=== PATIENT | female | born 1980 | race Caucasian/White ===

== ENCOUNTER 2017-09-20 07:02 | Outpatient (CLI) | payer BC | END 2017-09-20 07:03 | disposition home or self-care (01) | LOC: BICULT 07:02 | PROVIDERS: ATTEND Family Medicine | DX: O09.522 Supervision of elderly multigravida, second trimester (principal); Z3A.19 19 weeks gestation of pregnancy | CPT/HCPCS: 76805 ==

== ENCOUNTER 2018-02-11 21:00 | Inpatient (IN) | payer BC ==
[2018-02-11] MEDS ORDERED: HYDROcodone/Acetaminophen 5/325 mg Tablet PO PRN (21:46)
[2018-02-11] MEDS ORDERED: Promethazine HCl 25 MG/ML VIAL IM PRN (21:46)
[2018-02-11] MEDS ORDERED: Lidocaine 1% (PF) 30 ML VIAL SC PRN (21:46)
[2018-02-11] MEDS ORDERED: Diphenoxylate HCl/Atropine Tablet PO PRN (21:46)
[2018-02-11] MEDS ORDERED: Methylergonovine 0.2 MG/ML VIAL IM PRN (21:46)
[2018-02-11] MEDS ORDERED: Ibuprofen 800 MG TAB PO PRN (21:46)
[2018-02-11] MEDS ORDERED: Misoprostol 200 MCG TAB PR PRN (21:46)
[2018-02-11] MEDS ORDERED: Ondansetron HCl/PF 4 MG/2 ML Vial IVP PRN (21:46)
[2018-02-11] MEDS ORDERED: Carboprost 250 MCG/ML AMP IM PRN (21:46)
[2018-02-11] MEDS ORDERED: NS w/ Oxytocin 10 units 500 ML IV SCH (22:30)
[2018-02-11] MEDS ORDERED: Penicillin G Potassium 5 MILL.UNITS in Sodium Chloride 0.9% 100 ML IVPB SCH (22:30)
[2018-02-11 22:32] VITALS: BMI 35.8
[2018-02-11 22:59] LABS: Hemoglobin 12.9 g/dL (12.0-16.0); Mean Corpuscular HGB CONC 34.4 g/dL (32.0-36.0); Mean Corpuscular Volume 84.3 fl (81.0-99.0); Mean Platelet Volume 9.1 fL (7.4-10.4); Platelet Count 223 thou/uL (130-400); RBC Distribution Width 12.2 % (11.5-14.5); Red Blood Cell (RBC) Count 4.45 mill/uL (4.20-5.40); White Blood Cell (WBC) Count 13.3 thou/uL (4.8-10.8)
[2018-02-11] MEDS: Lactated Ringer's 1,000 ML IV SCH (22:59)
[2018-02-11] MEDS: Misoprostol 100 MCG TAB VAG SCH (23:30)
[2018-02-11 23:38] LABS: HBSAg Index 0.15 S/CO (0-0.99); Hep B Surf Ag Non-Reactive S/CO (NonReactive); Syphilis Antibody Nonreactive (Nonreactive); Syphilis Antibody Index 0.03 S/CO (<1.00 Non-Reactive)
[2018-02-12] MEDS: Misoprostol 100 MCG TAB VAG SCH ×3 (02:30→22:58)
[2018-02-12] MEDS: Lactated Ringer's 1,000 ML IV SCH ×4 (02:36→19:34)
[2018-02-12] MEDS: Penicillin G 2.5 MILL.units 2.5 MILL.UNITS in Premix Bag 1 BAG IVPB SCH ×5 (03:33→22:59)
[2018-02-12] MEDS ORDERED: DISCONTINUE ALL PREVIOUS NARCOTICS FS SCH (12:00)
[2018-02-12] MEDS ORDERED: Bupivacaine 0.5% 20 ML, fentaNYL Citrate/PF 400 MCG in Sodium Chloride 0.9% 72 ML EPIDURAL SCH (12:00)
[2018-02-12] MEDS ORDERED: Fentanyl 100 MCG/2 ML VIAL ONE (12:04)
[2018-02-12] MEDS ORDERED: Bupivacaine 0.5% 10 ML VIAL ONE (12:04)
[2018-02-12] MEDS ORDERED: Bupivacaine 0.25% 10 ML VIAL EPIDURAL ONE (12:29)
[2018-02-12] MEDS ORDERED: Fentanyl 100 MCG/2 ML VIAL I-THECAL ONE (12:29)
[2018-02-12] MEDS: NS w/ Oxytocin 10 units 500 ML IV SCH (13:06)
[2018-02-12] MEDS: NS / Oxytocin 40 units/1000ml 1,000 ML IV PRN ×2 (16:50→17:56)
[2018-02-12] MEDS ORDERED: Misoprostol 200 MCG TAB ONE (16:56)
[2018-02-12] MEDS: Tranexamic Acid 1,000 MG in Sodium Chloride 0.9% 100 ML IVPB SCH ×2 (17:10→19:34)
[2018-02-12] MEDS ORDERED: Carboprost 250 MCG/ML AMP ONE (17:13)
[2018-02-12] MEDS ORDERED: HYDROcodone/Acetaminophen 5/325 mg Tablet PO PRN (23:36)
[2018-02-12] MEDS ORDERED: diphenhydrAMINE 25 MG CAP PO PRN (23:36)
[2018-02-12] MEDS ORDERED: NS / Oxytocin 40 units/1000ml 1,000 ML IV SCH (23:36)
[2018-02-12] MEDS ORDERED: Bisacodyl 10 MG SUPP PR PRN (23:36)
[2018-02-12] MEDS ORDERED: Ondansetron HCl/PF 4 MG/2 ML Vial IVP PRN (23:36)
[2018-02-12] MEDS ORDERED: Milk Of Magnesia 30 ML UDCUP PO PRN (23:36)
[2018-02-12] MEDS ORDERED: Diphenoxylate HCl/Atropine Tablet PO PRN (23:36)
[2018-02-12] MEDS ORDERED: Lanolin Ointment 7 GM TUBE TOP PRN (23:36)
[2018-02-12] MEDS ORDERED: Benzocaine/Menthol 20-0.5% 60 ML CAN TOP PRN (23:36)
[2018-02-12] MEDS ORDERED: Docusate Calcium (SURFAK) 240 MG CAP PO SCH (23:45)
[2018-02-13] MEDS: Ibuprofen 800 MG TAB PO SCH ×3 (01:33→16:50)
[2018-02-13] MEDS: Misoprostol 200 MCG TAB PO SCH ×2 (01:34→07:26)
[2018-02-13 05:43] LABS: Mean Corpuscular HGB CONC 33.4 g/dL (32.0-36.0); Mean Corpuscular Hemoglobin 28.7 pg (27.0-31.0); Mean Platelet Volume 9.3 fL (7.4-10.4); Platelet Count 206 thou/uL (130-400); RBC Distribution Width 12.5 % (11.5-14.5); Red Blood Cell (RBC) Count 3.85 mill/uL (4.20-5.40); White Blood Cell (WBC) Count 17.1 thou/uL (4.8-10.8)
[2018-02-13] MEDS ORDERED: Ferrous Sulfate 325 MG TAB PO SCH (08:00)
[2018-02-13] MEDS: Penicillin G 2.5 MILL.units 2.5 MILL.UNITS in Premix Bag 1 BAG IVPB SCH (08:14)
[2018-02-13] MEDS: NS w/ Oxytocin 10 units 500 ML IV SCH (08:15)
[2018-02-13] MEDS ORDERED: Prenatal Vitamin 1 TAB PO SCH (09:00)
[2018-02-13] MEDS ORDERED: Docusate Calcium (SURFAK) 240 MG CAP PO SCH (09:00)
[2018-02-13] MEDS: HYDROcodone/Acetaminophen 5/325 mg Tablet PO PRN ×2 (13:09→16:50)
[2018-02-13 15:23] VITALS: BP 104/59; TEMP 98.3
--- NOTE | 2018-02-20 20:50 | PQF ---
EARL BRISCOE CHAYITO VERA [id number] [facility]-258 [id number] CLINICAL DOCUMENTATION CLARIFICATION FORM: POST DISCHARGE Please exercise your independent, professional judgment in responding to the clarification form. Clinical indicators are provided on the bottom of this form for your review. Thank you. Please check appropriate box(s): Conflicting documentation was noted in the Medical Record, please clarify if patient is being treated/monitored for: [ ] Acute Demand Ischemia [ ] Non-ST Elevation myocardial infarction [ ] Other diagnosis [ ] Unable to determine In addition, please specify: Present on Admission (POA): [ ] Yes [ ] No [ ] Unable to determine For continuity of documentation, please document condition throughout progress notes and discharge summary. Thank You. CLINICAL INDICATORS - SIGNS / SYMPTOMS/ LABS Troponin level elevated - Abnormal levels of other serum enzymes - status: Acute Comment: demand ischemia from anemia and hypoxia - Hospital Progress Note 01/31/18 Anders Carrington. Non-ST elevation myocardial infarction - Progress Note 01/31/18 Anders Carrington RISK FACTORS Acute hypoxic respiratory failure, Acute on chronic diastolic heart failure, atrial fibrillation, CKD - PN 01/31/18 TREATMENT Diurese - PN 01/31/18 (This form is maintained as a part of the permanent medical record) 2014 [employer] All Rights Reserved Vashti Maharaj, CCS, BARREL SCRAPER, CASC [email or web address]
== END 2018-02-13 19:15 | disposition home or self-care (01) | DRG 774 ==
LOC: L&D 21:37 → 3SW 02-12 23:24
PROVIDERS: ADMIT Family Medicine; ATTEND Family Medicine
PROC: 10E0XZZ Delivery of Products of Conception, External Approach (ICD-10-PCS; principal; 2018-02-12)
PROC: 0KQM0ZZ Repair Perineum Muscle, Open Approach (ICD-10-PCS; 2018-02-12)
PROC: 3E0P7VZ Introduction of Hormone into Female Reproductive, Via Natural or Artificial Opening (ICD-10-PCS; 2018-02-12)
PROC: 10907ZC Drainage of Amniotic Fluid, Therapeutic from Products of Conception, Via Natural or Artificial Opening (ICD-10-PCS; 2018-02-12)
DX: O70.1 Second degree perineal laceration during delivery (principal); O72.1 Other immediate postpartum hemorrhage; Z37.0 Single live birth; O99.824 Streptococcus B carrier state complicating childbirth; Z3A.40 40 weeks gestation of pregnancy
CPT/HCPCS: 36415; 51702; 85027; 85461; 86780; 86850; 86900; 86901; 87340; 90384; 96372; J0595; J2540; J3010; J3490; J7050; S0020